=== PATIENT | male | born 1990 | race Caucasian/White ===

== ENCOUNTER 2016-12-18 12:34 | Emergency (ER) | payer OTHER | END 2016-12-18 13:45 | disposition home or self-care (01) | LOC: ER1 12:34 | DX: J40 Bronchitis, not specified as acute or chronic (principal); R21 Rash and other nonspecific skin eruption; F17.210 Nicotine dependence, cigarettes, uncomplicated; Z88.0 Allergy status to penicillin | CPT/HCPCS: 71020; 99283 ==